=== PATIENT | female | born 1985 | race Caucasian/White ===

== ENCOUNTER 2018-07-10 19:32 | Emergency (ER) | payer OTHER ==
--- NOTE | 2018-07-10 20:19 | ED Physician Documentation ---
PD HPI LOWER EXT INJURY - Stated complaint Stated Complaint: ANKLE INJURY - Chief complaint Chief Complaint: Neuro - History obtained from History obtained from: Patient - History of Present Illness PD HPI LOW EXT INJURY LOCATION: Right, Ankle (She slipped off a curb and felt a pop in her lateral ankle. She was able to walk but then got dizzy and sweaty nearly passed out. She declines pain medication. There is a possibility of .) Review of Systems Constitutional: denies: Fever, Chills Respiratory: denies: Dyspnea, Cough GI: denies: Abdominal Pain, Nausea, Vomiting PD PAST MEDICAL HISTORY - Past Medical History Past Medical History: No - Past Surgical History Past Surgical History: No - Present Medications Home Medications: Ambulatory Orders Medication Instructions Recorded Confirmed No Known Home Medications [No 07/10/18 07/10/18 Known Home Medications] - Allergies Allergies/Adverse Reactions: Allergies Allergy/AdvReac Type Severity Reaction Status Date / Time No Known Drug Allergies Allergy Verified 07/10/18 19:42 - Social History Does the pt smoke?: No Smoking Status: Never smoker Does the pt drink ETOH?: No Does the pt have substance abuse?: No - Immunizations Immunizations are current?: Yes PD ED PE NORMAL - Vitals Vital signs reviewed: Yes - General General: Alert and oriented X 3, No acute distress - Extremities Extremities: Other (Right ankle, there is no proximal fibular or hip tenderness. She is quite tender over the lateral malleolus and ATFL and proximal fifth metatarsal without deformity. We discussed x-rays, she has a possibility of but we would probably need to do x-rays even if she is and she agrees and we will shield her during exam and x-ray tech was notified.) - Neuro Neuro: Alert and oriented X 3, Normal speech Results - Vitals Vitals: Vital Signs - 24 hr 07/10/18 19:37 Temperature 36.2 C L Heart Rate 84 Respiratory 12 Rate Blood Pressure 120/76 O2 Saturation 100 Oxygen O2 Source Room air - Rads (name of study) R ankle and foot Radiology: EMP read contemporaneously (prox 5th MT frx) Procedures - Splint (location) RLE Splint applied by: Tech Type of splint: Fiberglass, Short leg, Posterior Other: Patient tolerated well, No complications, Neurovascular intact PD MEDICAL DECISION MAKING - ED course ED course: She declined prescription pain medications. - Sepsis Event Vital Signs: Vital Signs - 24 hr 07/10/18 19:37 Temperature 36.2 C L Heart Rate 84 Respiratory 12 Rate Blood Pressure 120/76 O2 Saturation 100 Oxygen O2 Source Room air Departure - Departure Disposition: 01 Home, Self Care Clinical Impression: Fracture of fifth metatarsal bone Qualifiers: Encounter type: initial encounter Fracture type: closed Fracture alignment: nondisplaced Laterality: right Qualified Code(s): S92.354A - Nondisplaced fracture of fifth metatarsal bone, right foot, initial encounter for closed fracture Condition: Good Record reviewed to determine appropriate education?: Yes Instructions: ED Fx Foot Comments: Keep the splint on and dry, [place] take the copy the x-rays with you.
--- NOTE | 2018-07-10 20:40 | XRAY Report ---
Procedure Date: 07/10/2018 Accession Number: [id number] / [id number] Procedure: XR - Ankle 3 View RT CPT Code: FULL RESULT: EXAM: RIGHT ANKLE RADIOGRAPHY EXAM DATE: 07/10/2018 08:30 PM. CLINICAL HISTORY: Pain and swollen injury from glf. COMPARISON: None. TECHNIQUE: 3 views. FINDINGS: Bones: Nondisplaced intra-articular fracture of the fifth metatarsal base. No additional fracture. Joints: Normal. No effusion. No subluxation. The ankle mortise is normally aligned. Soft Tissues: Mild soft tissue swelling. IMPRESSION: Fifth metatarsal base fracture. RADIA
--- NOTE | 2018-07-10 20:42 | XRAY Report ---
Procedure Date: 07/10/2018 Accession Number: [id number] / [id number] Procedure: XR - Foot 3 View RT CPT Code: FULL RESULT: EXAM: RIGHT FOOT RADIOGRAPHY EXAM DATE: 07/10/2018 08:30 PM. CLINICAL HISTORY: Foot inj. COMPARISON: None. TECHNIQUE: 3 views. FINDINGS: Bones: There is a nondisplaced intra-articular fracture of the fifth metatarsal base. No additional fracture. Joints: Normal. No subluxation. Soft Tissues: Mild soft tissue swelling. IMPRESSION: Fifth metatarsal base fracture. RADIA
[2018-07-10 20:56] VITALS: BP 120/71
== END 2018-07-10 21:00 | disposition home or self-care (01) ==
LOC: ED 19:32
DX: S92.354A Nondisplaced fracture of fifth metatarsal bone, right foot, initial encounter for closed fracture (principal); W18.49XA Other slipping, tripping and stumbling without falling, initial encounter; X50.9XXA Other and unspecified overexertion or strenuous movements or postures, initial encounter; Y92.410 Unspecified street and highway as the place of occurrence of the external cause
CPT/HCPCS: 29515; 99283; 99284